=== PATIENT | male | born 1990 | race Caucasian/White ===

== ENCOUNTER 2022-10-05 10:50 | Observation (INO) | payer OTHER ==
[2022-10-05 11:22] LABS: #Eosinphils 0.1 thou/uL (0.0-0.7); #Monocytes 0.4 thou/uL (0.11-0.59); #Neutrophils 3.3 thou/uL (1.40-6.50); %Basophils 0.6 % (0.0-1.0); %Eosinophils 0.9 % (0.0-10.0); %Lymphocytes 43.3 % (21.0-51.0); %Monocytes 5.9 % (0.0-10.0); Mean Corpuscular HGB CONC 35.9 g/dL (32.0-36.0); Mean Corpuscular Hemoglobin 32.9 pg (27.0-31.0); Mean Corpuscular Volume 91.7 fl (78.0-98.0); Mean Platelet Volume 9.2 fL (7.4-10.4); Platelet Count 230 10x3/uL (130-400); RBC Distribution Width 11.7 % (11.5-14.5); Red Blood Cell (RBC) Count 5.17 mill/uL (4.70-6.10); White Blood Cell (WBC) Count 6.6 10x3/uL (4.8-10.8)
[2022-10-05 11:48] LABS: ALT (SGPT) 23 U/L (8-55); AST (SGOT) 18 U/L (5-34); Albumin 4.9 g/dL (3.5-5.0); Alkaline Phosphatase 48 U/L (40-110); Anion Gap 11 mmol/L (10-20); BUN (Urea Nitrogen) 12 mg/dL (8.9-20.6); Bilirubin, Total 2.3 mg/dL (0.2-1.2); Calc. Creatinine Clearance 0 mL/min (70-130); Carbon Dioxide 28 mmol/L (22-29); Chloride 105 mmol/L (98-107); Estimated GFR 80; Globulin 2.5 g/dL (2.4-3.5); Glucose 112 mg/dL (70-105); Potassium 3.9 mmol/L (3.5-5.1); Protein, Total 7.4 g/dL (6.0-8.3); Sodium 140 mmol/L (136-145)
[2022-10-05 13:57] LABS: Troponin I Less than 0.010 ng/mL (< 0.028)
[2022-10-05] MEDS ORDERED: Guaifenesin DM 100-10/5 ML UDCUP PO PRN (14:15)
[2022-10-05] MEDS ORDERED: Sodium Chloride 0.9% 1,000 ML IV SCH (14:15)
[2022-10-05] MEDS ORDERED: Ondansetron PF 4 MG/2 ML Vial IVP PRN (14:15)
[2022-10-05] MEDS ORDERED: Acetaminophen 325 MG TAB PO PRN (14:15)
[2022-10-05] MEDS ORDERED: Aspirin Chewable 81 MG TAB PO SCH (14:30)
[2022-10-05] MEDS ORDERED: Aspirin Chewable 81 MG TAB ONE (16:38)
[2022-10-05 17:44] LABS: Troponin I Less than 0.010 ng/mL (< 0.028)
[2022-10-05] MEDS ORDERED: Meclizine HCl 25 MG TAB PO PRN (18:41)
[2022-10-05 19:27] VITALS: BMI 26.1
[2022-10-05] MEDS: Famotidine 20 MG TAB PO SCH (21:04)
[2022-10-06 05:13] LABS: #Basophils 0.1 thou/uL (0.0-0.2); #Eosinphils 0.1 thou/uL (0.0-0.7); #Monocytes 0.5 thou/uL (0.11-0.59); #Neutrophils 2.9 thou/uL (1.40-6.50); %Basophils 0.8 % (0.0-1.0); %Eosinophils 1.7 % (0.0-10.0); %Lymphocytes 41.6 % (21.0-51.0); %Monocytes 8.4 % (0.0-10.0); %Neutrophils 47.3 % (42.0-75.0); Hemoglobin 15.4 g/dL (14.0-18.0); Mean Corpuscular Hemoglobin 33.1 pg (27.0-31.0); Mean Platelet Volume 9.5 fL (7.4-10.4); Platelet Count 185 10x3/uL (130-400); RBC Distribution Width 11.6 % (11.5-14.5); Red Blood Cell (RBC) Count 4.65 mill/uL (4.70-6.10); White Blood Cell (WBC) Count 6.1 10x3/uL (4.8-10.8)
[2022-10-06 05:40] LABS: Anion Gap 10 mmol/L (10-20); BUN (Urea Nitrogen) 14 mg/dL (8.9-20.6); Calc. Creatinine Clearance 109 mL/min (70-130); Calcium 9.1 mg/dL (7.8-10.44); Carbon Dioxide 27 mmol/L (22-29); Chloride 107 mmol/L (98-107); Cholesterol 125 mg/dl (< 200 Desired); Estimated GFR 88; Glucose 98 mg/dL (70-105); HDL Cholesterol 31 mg/dL (>60 Neg Risk); LDL Cholesterol, Calculated 59 mg/dL; Potassium 3.9 mmol/L (3.5-5.1); Sodium 140 mmol/L (136-145); Triglycerides 173 mg/dL (Less than 150)
[2022-10-06] MEDS: Aspirin Chewable 81 MG TAB PO SCH ×2 (11:38→11:49)
[2022-10-06] MEDS: Famotidine 20 MG TAB PO SCH ×2 (11:38→11:49)
[2022-10-06 12:14] VITALS: BP 118/71; TEMP 98.7
== END 2022-10-06 14:11 | disposition home or self-care (01) ==
LOC: ERS 10:50 → ERHOLD 13:03 → 2SW 18:10
PROVIDERS: ADMIT Internal Medicine; ATTEND Internal Medicine
DX: R07.9 Chest pain, unspecified (principal); Z88.1 Allergy status to other antibiotic agents
CPT/HCPCS: 36415; 71045; 78452; 80048; 80053; 80061; 84484; 85025; 93005; 93017; A9500; G0378; J7050

== ENCOUNTER 2023-03-08 18:13 | Emergency (ER) | payer OTHER ==
[2023-03-08] MEDS ORDERED: Ondansetron PF 4 MG/2 ML Vial ONE (19:56)
[2023-03-08] MEDS ORDERED: Dicyclomine 20 MG/2 ML VIAL ONE (19:57)
[2023-03-08 20:05] LABS: #Monocytes 0.7 thou/uL (0.11-0.59); #Neutrophils 9.3 thou/uL (1.40-6.50); %Basophils 0.2 % (0.0-1.0); %Eosinophils 0.3 % (0.0-10.0); %Lymphocytes 4.5 % (21.0-51.0); %Monocytes 6.4 % (0.0-10.0); %Neutrophils 88.1 % (42.0-75.0); Hematocrit 49.4 % (42.0-52.0); Mean Corpuscular HGB CONC 36.4 g/dL (32.0-36.0); Mean Corpuscular Hemoglobin 33.8 pg (27.0-31.0); Mean Corpuscular Volume 92.7 fl (78.0-98.0); Mean Platelet Volume 9.5 fL (7.4-10.4); Platelet Count 163 10x3/uL (130-400); RBC Distribution Width 12.1 % (11.5-14.5); Red Blood Cell (RBC) Count 5.33 mill/uL (4.70-6.10); White Blood Cell (WBC) Count 10.5 10x3/uL (4.8-10.8)
[2023-03-08 20:51] LABS: SARS-CoV-2 NAA Rapid Test Not Detected (NotDetected)
[2023-03-08 21:48] LABS: Albumin 5.1 g/dL (3.5-5.0)
[2023-03-08 21:50] LABS: Calcium 8.8 mg/dL (7.8-10.44); Chloride 106 mmol/L (98-107); Potassium 4.5 mmol/L (3.5-5.1); Sodium 141 mmol/L (136-145)
[2023-03-08 21:51] LABS: Globulin 1.9 g/dL (2.4-3.5); Glucose 111 mg/dL (70-105)
[2023-03-08 21:52] LABS: Anion Gap 14 mmol/L (10-20); Carbon Dioxide 26 mmol/L (22-29)
[2023-03-08 21:53] LABS: Bilirubin, Total 3.5 mg/dL (0.2-1.2)
[2023-03-08 21:54] LABS: Alkaline Phosphatase 44 U/L (40-110); Calc. Creatinine Clearance 0 mL/min (70-130); Estimated GFR 92
[2023-03-08 21:55] LABS: BUN (Urea Nitrogen) 14 mg/dL (8.9-20.6)
[2023-03-08 21:56] LABS: AST (SGOT) 18 U/L (5-34)
[2023-03-08 21:57] LABS: ALT (SGPT) 22 U/L (8-55); Lipase 10 U/L (8-78)
== END 2023-03-08 22:15 | disposition home or self-care (01) ==
LOC: ERS 18:13
DX: B34.9 Viral infection, unspecified (principal); Z20.822 Contact with and (suspected) exposure to COVID-19
CPT/HCPCS: 36415; 80053; 83690; 85025; 96361; 96372; 96374; J2405